=== PATIENT | male | born 1995 | race Caucasian/White ===

== ENCOUNTER 2020-04-29 22:30 | Emergency (ER) | payer MEDICAID ==
[~2020-04-29] VITALS: Ht 188 cm; Wt 79.5 kg
[2020-04-29 22:34] VITALS: BP 141/93
[2020-04-29] MEDS ORDERED: TETanus/Pertussis (Acell)/Diphther VAC/PF (Tdap-Adult) 0.5ml syringe IMVAC ONE (23:35)
[2020-04-29] MEDS ORDERED: LIDOcaine 1% W/epiNEPHrine 1:200,000 10ml vial IJ ONE (23:35)
== END 2020-04-30 01:15 | disposition home or self-care (01) ==
LOC: ER 22:30
DX: S31.010A Laceration without foreign body of lower back and pelvis without penetration into retroperitoneum, initial encounter (principal); Z72.89 Other problems related to lifestyle; Z20.3 Contact with and (suspected) exposure to rabies; W19.XXXA Unspecified fall, initial encounter; Y93.89 Activity, other specified; Y92.89 Other specified places as the place of occurrence of the external cause; Y99.8 Other external cause status
CPT/HCPCS: 12001; 72170; 90471; 90715; 99284